=== PATIENT | male | born 1945 | race Caucasian/White ===

== ENCOUNTER → 2019-11-10 | Outpatient (CLI) | payer MEDICARE ==
--- NOTE | 2019-11-10 14:14 | RAD ---
PET/CT imaging from the skull through the midthigh History: History of malignancy of the gastric cardia. Staging study. Comparison: None available at this facility. Technique: PET examination was performed from the skull base to the proximal thighs after intravenous administration of 15.6 mCi Fluorine [address] scan was performed for the purposes of localization and attenuation, not for primary diagnosis. Blood glucose level at time of injection was 97 mg/dl. PQRS Compliance Statement: One or more of the following individualized dose reduction techniques were utilized for this examination: 1. Automated exposure control 2. Adjustment of the mA and/or kV according to patient size 3. Use of iterative reconstruction technique Findings: HEAD AND NECK: No hypermetabolic focus or enlarged cervical lymphadenopathy is seen. CHEST: There is a hypermetabolic area within the lateral intercostal space between the first and second ribs with a max SUV of 7.3. There is a soft tissue nodule here on the CT study located just lateral to the intercostal muscle in the deep portion of the left axillary region specifically deep to the coracoid process of the scapula and deep and inferior to the left clavicle. This nodule measures 22 mm in size. This may represent a metastatic lymph node. There is increased metabolic activity involving the distal esophagus just proximal to the GE junction with a max SUV of 15. There is wall thickening of the esophagus here. Just proximal to this area within the distal thoracic esophagus is another focus of hypermetabolic activity with a max SUV of 9.5. This area appears to be located just posterior to the esophagus and therefore represents a paraesophageal lymph node. This lymph node measures 16 mm. No other hypermetabolic thoracic lymphadenopathy is seen. No hypermetabolic lung focus or lung nodules are seen. Therefore no lung metastatic disease is evident. ABDOMEN AND PELVIS: Multiple hypermetabolic foci seen throughout the left and right lobes of the liver. The largest focus measures 3 cm in size within the posterior segment right lobe of the liver. This demonstrates a max SUV of 17.6. There are other lesions within the liver which demonstrate max SUV of 31 anteriorly within the right lobe liver. There are upper retroperitoneal lymph nodes just posterior to the gastric cardia and GE junction with a max SUV of 15.8. Largest lymph node here measures 32 mm. There are additional retroperitoneal and periaortic enlarged lymph nodes which extend down to just above the aortic bifurcation. There is additional physiologic activity throughout the stomach and GI tract and tract. MUSCULOSKELETAL: No hypermetabolic lesion is evident. IMPRESSION: Wall thickening of the distal esophagus just above the GE junction with max SUV of 15 consistent with esophageal malignancy. There is a paraesophageal lymph node within the mediastinum and extensive abdominal lymphadenopathy. There is an additional lymph node within the deep axillary region on the left side just lateral to the intercostal space between the first and second ribs. Extensive hepatic metastasis. No lung metastasis.
== END | disposition home or self-care (01) ==
LOC: PETSC 07:22
DX: C78.7 Secondary malignant neoplasm of liver and intrahepatic bile duct (principal); C78.89 Secondary malignant neoplasm of other digestive organs; K76.9 Liver disease, unspecified; Z85.028 Personal history of other malignant neoplasm of stomach
CPT/HCPCS: 78815; A9552